=== PATIENT | female | born 1945 | race Caucasian/White ===

== ENCOUNTER → 2016-03-29 | Outpatient (CLI) | payer MEDICARE, BC ==
[~2016-03-29] MED LIST: ATROVENT INHALE14 GM IH; CALCIUM + D 6001 TAB PO; CIPRO 500MG TA500 MG PO; CLONAZEPAM0.5 MG PO; FLAGYL500 MG PO; MULTIPLE VITAMI1 CTB PO; NASONEX0.05 MG/AC NS; NORCO 325 MG-51 TAB PO; OMEPRAZOLE40 MG PO; PRAVASTATIN20 MG PO; PRIL40 PO; PROZAC 20MG20 MG PO; PULMICORT180 MCG/A1 IH; ULTRAM 50MG TAB50 MG PO; VERAPAMIL PO; VIIBRYD PO; WELLBUTRIN XL150 MG PO; ZOFRAN8 MG PO
== END ==
LOC: BHSO 14:58
DX: F41.1 Generalized anxiety disorder (principal)

== ENCOUNTER → 2016-08-23 | Outpatient (CLI) | payer MEDICARE, BC | LOC: BHSO 15:01 | DX: F41.1 Generalized anxiety disorder (principal) ==

== ENCOUNTER → 2016-09-06 | Outpatient (CLI) | payer MEDICARE, BC | LOC: MC.RAD 09:51 | DX: Z12.31 Encounter for screening mammogram for malignant neoplasm of breast (principal) ==

== ENCOUNTER → 2017-03-11 | Outpatient (CLI) | payer MEDICARE, BC | LOC: BHSO 10:15 | DX: F41.1 Generalized anxiety disorder (principal) | CPT/HCPCS: G0463 ==

== ENCOUNTER → 2017-09-09 | Outpatient (CLI) | payer MEDICARE, BC | LOC: BHSO 12:59 | DX: F33.41 Major depressive disorder, recurrent, in partial remission (principal) | CPT/HCPCS: G0463 ==

== ENCOUNTER → 2018-03-12 | Outpatient (CLI) | payer MEDICARE, BC | LOC: BHSO 13:01 | DX: F33.41 Major depressive disorder, recurrent, in partial remission (principal) | CPT/HCPCS: G0463 ==

== ENCOUNTER → 2018-06-09 | Outpatient (CLI) | payer MEDICARE, BC | LOC: BHSO 13:34 | DX: F41.1 Generalized anxiety disorder (principal) | CPT/HCPCS: G0463 ==

== ENCOUNTER 2018-07-21 16:27 | Emergency (ER) | payer MEDICARE, BC ==
[~2018-07-21] VITALS: Ht 167.6 cm; Wt 75.0 kg
[~2018-07-21 16:27] MED LIST changes: -CLONAZEPAM0.5 MG PO; +KLONOPIN 0.5MG0.5 MG PO; -MULTIPLE VITAMI1 CTB PO; +MULTIPLE VITAMI1 TA5 PO; +PRAVACHOL 20MG20 MG PO; -PRAVASTATIN20 MG PO
[2018-07-21 16:34] VITALS: BP 110/71; PULSE 66; TEMP 96.8
[2018-07-21 16:54] LABS: BASO % 0.3 % (0.0-2.0); EOS % 8.2 % (0-4.0); GRAN % 50.2 % (42.2-75.2); HEMATOCRIT 39.2 % (37.0-47.0); LYMPH # 3.8 (1.2-3.4); LYMPH % 31.5 % (20.0-51.0); MEAN CELL VOLUME 95 fl (80.0-100.0); MEAN CORPUSCULAR HEMOGLOBIN 32 pg (27.0-31.0); MEAN CORPUSCULAR HGB CONC 33 g/dl (33.0-37.0); MEAN PLATELET VOLUME 9.9 fl (7.4-10.4); MONO # 1.1 (0.1-0.6); MONO % 9.5 % (1.7-9.3); PLATELET COUNT 263 K/mm3 (130-400); RED BLOOD COUNT 4.13 M/mm3 (4.10-5.30); REDCELL DISTRIBUTION WIDTH-CV 13.2 % (11.5-14.5)
[2018-07-21] MEDS ORDERED: WELLBUTRIN XL300 M1 PO (17:03)
[2018-07-21] MEDS ORDERED: PROTONIX 40MG T40 MG PO (17:05)
[2018-07-21] MEDS ORDERED: ISOPTIN SR240 MG PO (17:06)
[2018-07-21] MEDS ORDERED: FLONASE NASAL S16 GM NS (17:08)
[2018-07-21] MEDS ORDERED: PULMICORT180 MCG/Ac IH (17:08)
[2018-07-21 17:18] LABS: ALANINE AMINOTRANSFERASE 21 U/L (9-52); ALBUMIN 3.9 gm/dL (3.5-5.0); ALKALINE PHOSPHATASE 112 U/L (50-136); ANION GAP 10 mmol/L (7-16); AST,SGOT 27 U/L (15-37); BILIRUBIN,TOTAL 0.2 mg/dL (0.0-1.0); BLOOD UREA NITROGEN 15 mg/dL (7-17); CALCIUM 9.2 mg/dL (8.4-10.2); CARBON DIOXIDE 26 mmol/L (22-30); CHLORIDE 100 mmol/L (98-107); CREATININE, serum 1.01 (0.52-1.25); GLUCOSE 105 mg/dL (74-106); LIPASE 101 U/L (23-300); POTASSIUM 4.2 mmol/L (3.4-5.0); SODIUM 136 mmol/L (137-145); TOTAL PROTEIN 6.7 gm/dL (6.4-8.2)
[2018-07-21 17:39] LABS: TROPONIN-I < 0.012 ng/mL (0.000-0.035)
[2018-07-21] MEDS ORDERED: ATIVAN 0.50.5 MG/TAB PO (18:01)
== END 2018-07-21 18:13 | disposition home or self-care (01) ==
LOC: COL.ER 16:27
PROVIDERS: Emergency Medicine
DX: F41.9 Anxiety disorder, unspecified (principal); R00.2 Palpitations; F32.9 Major depressive disorder, single episode, unspecified; I10 Essential (primary) hypertension; K21.9 Gastro-esophageal reflux disease without esophagitis; Z79.51 Long term (current) use of inhaled steroids
CPT/HCPCS: J2060

== ENCOUNTER → 2018-07-23 | Outpatient (CLI) | payer MEDICARE, BC ==
[~2018-07-23] MED LIST changes: +ATIVAN 0.50.5 MG/TAB PO; +FLONASE NASAL S16 GM NS; +ISOPTIN SR240 MG PO; +PROTONIX 40MG T40 MG PO; +PULMICORT180 MCG/Ac IH; +WELLBUTRIN XL300 M1 PO
== END ==
LOC: BHSO 13:35
DX: F41.0 Panic disorder [episodic paroxysmal anxiety] (principal)
CPT/HCPCS: G0463

== ENCOUNTER → 2018-09-02 | Outpatient (CLI) | payer MEDICARE, BC | LOC: BHSO 14:02 | DX: F33.42 Major depressive disorder, recurrent, in full remission (principal) | CPT/HCPCS: G0463 ==

== ENCOUNTER → 2018-10-15 | Outpatient (CLI) | payer MEDICARE, BC | LOC: MC.RAD 09:23 | DX: Z12.31 Encounter for screening mammogram for malignant neoplasm of breast (principal) ==

== ENCOUNTER → 2018-12-03 | Outpatient (CLI) | payer MEDICARE, BC | LOC: BHSO 13:35 | DX: F41.1 Generalized anxiety disorder (principal) | CPT/HCPCS: G0463 ==

== ENCOUNTER → 2019-01-05 | Outpatient (CLI) | payer MEDICARE, BC | LOC: BHSO 13:36 | DX: F41.1 Generalized anxiety disorder (principal) | CPT/HCPCS: G0463 ==

== ENCOUNTER → 2019-07-10 | Outpatient (CLI) | payer MEDICARE, BC | LOC: BHSO 11:12 | DX: F41.1 Generalized anxiety disorder (principal) ==